=== PATIENT | female | born 1970 | race Caucasian/White ===

== ENCOUNTER 2017-02-13 20:52 | Emergency (ER) | payer OTHER ==
[~2017-02-13 20:52] MED LIST: ACETAZOLAMIDE250 MG PO; ANTIVERT25 MG PO; CEFDINIR300 MG PO; DIFLUCAN150 MG PO; IBUPROFEN800 MG PO; ZANTAC150 MG PO
[2017-02-13 21:08] LABS: URINE BILIRUBIN 2+ (NEGATIVE); URINE BLOOD NEGATIVE (NEGATIVE); URINE GLUCOSE (UA) NORMAL (NORMAL); URINE KETONE NEGATIVE (NEGATIVE); URINE LEUKOCYTE ESTERASE TRACE (NEGATIVE); URINE NITRATE POSITIVE (NEGATIVE); URINE PROTEIN NEGATIVE (NEGATIVE)
[2017-02-13 21:24] LABS: URINE RBC RARE /[HPF] (0-2); URINE WBC 0-5 /[HPF] (0-5)
[2017-02-13 21:25] LABS: URINE BACTERIA TRACE (NONE SEEN); URINE SQUAMOUS EPITHELIAL CELL 0-10 /[HPF] (NONE SEEN)
== END 2017-02-13 22:40 | disposition home or self-care (01) ==
LOC: ER 20:52
PROVIDERS: Internal Medicine
DX: N39.0 Urinary tract infection, site not specified (principal); R10.9 Unspecified abdominal pain; Z79.899 Other long term (current) drug therapy; Z88.8 Allergy status to other drugs, medicaments and biological substances
CPT/HCPCS: 81001; 99070; 99283

== ENCOUNTER 2017-02-28 14:56 | Emergency (ER) | payer OTHER ==
[2017-02-28 20:13] LABS: URINE BILIRUBIN 3+ (NEGATIVE); URINE BLOOD TRACE (NEGATIVE); URINE GLUCOSE (UA) NORMAL (NORMAL); URINE KETONE NEGATIVE (NEGATIVE); URINE LEUKOCYTE ESTERASE NEGATIVE (NEGATIVE); URINE NITRATE POSITIVE (NEGATIVE); URINE PROTEIN 1+ (NEGATIVE)
[2017-02-28 20:23] LABS: URINE BACTERIA TRACE (NONE SEEN); URINE SQUAMOUS EPITHELIAL CELL 0-10 /[HPF] (NONE SEEN); URINE WBC 0-5 /[HPF] (0-5)
[2017-02-28 20:24] LABS: URINE MUCUS 2+
[2017-02-28 20:49] LABS: BASO % 0.5 % (0.1-1.2); EOS # 0.1 10_X3_uL (0.0-0.4); EOS % 2.1 % (0.7-5.8); GRAN # 2.3 10_X3_uL (1.6-6.1); GRAN % 52.6 % (34.0-71.1); HEMATOCRIT 37.8 % (34-45); HEMOGLOBIN 12.1 g/dL (11.2-15.7); LYMPH # 1.6 10_X3_uL (1.2-3.7); LYMPH % 36.6 % (19.3-51.7); MEAN CORPUSCULAR HEMOGLOBIN 30.1 pg (27.0-33.0); MEAN PLATELET VOLUME 8.9 fl (7.5-11.5); MONO # 0.4 10_X3_uL (0.2-0.9); MONO % 8.2 % (4.7-12.5); PLATELET COUNT 220 x10_3/uL (182-369); RED BLOOD COUNT 4.02 x10_6/uL (3.9-5.2); RED CELL DISTRIBUTION WIDTH 15.3 % (11.7-14.4); WHITE BLOOD COUNT 4.4 x10_3/uL (4.0-10.0)
[2017-02-28 21:03] LABS: BLOOD UREA NITROGEN 18 mg/dL (7-18); CALCIUM 8.6 mg/dL (8.7-10.7); CARBON DIOXIDE 17 mmol/L (21-32); CREATININE 0.8 mg/dL (0.6-1.3); GLUCOSE,RANDOM 108 mg/dL (70-99); POTASSIUM 3.2 mmol/L (3.5-5.1); SODIUM 143 mmol/L (136-145)
== END 2017-02-28 21:33 | disposition home or self-care (01) ==
LOC: ER 14:56
PROVIDERS: Emergency Medicine
DX: N30.80 Other cystitis without hematuria (principal); E87.6 Hypokalemia; K21.9 Gastro-esophageal reflux disease without esophagitis; R10.9 Unspecified abdominal pain; Z88.8 Allergy status to other drugs, medicaments and biological substances; Z79.899 Other long term (current) drug therapy
CPT/HCPCS: 36415; 80048; 81001; 85025; 87086; 99070; 99283

== ENCOUNTER 2017-04-14 22:12 | Emergency (ER) | payer OTHER ==
[2017-04-15 01:42] LABS: URINE BILIRUBIN NEGATIVE (NEGATIVE); URINE BLOOD NEGATIVE (NEGATIVE); URINE GLUCOSE (UA) NORMAL (NORMAL); URINE KETONE TRACE (NEGATIVE); URINE LEUKOCYTE ESTERASE NEGATIVE (NEGATIVE); URINE NITRATE NEGATIVE (NEGATIVE); URINE PROTEIN TRACE (NEGATIVE)
[2017-04-15 01:54] LABS: URINE WBC 0-5 /[HPF] (0-5)
== END 2017-04-15 04:23 | disposition home or self-care (01) ==
LOC: ER 22:12
PROVIDERS: Emergency Medicine
DX: N39.0 Urinary tract infection, site not specified (principal); M25.551 Pain in right hip; R10.30 Lower abdominal pain, unspecified; K21.9 Gastro-esophageal reflux disease without esophagitis; Z87.440 Personal history of urinary (tract) infections; Z79.899 Other long term (current) drug therapy
CPT/HCPCS: 72192; 81001; 96372; 99284-25